=== PATIENT | male | born 1945 | race Caucasian/White ===

== ENCOUNTER 2016-08-27 03:56 | Inpatient (IN) | payer OTHER ==
[~2016-08-27] VITALS: Ht 170.2 cm; Wt 86.2 kg
[~2016-08-27 03:56] MED LIST: ATENOLOL25 M1 PO; CRESTOR5 M1 PO; DETROL LA4 M1 PO; FLOMAX0.4 M1 PO; HYDROCHLOROTHIA25 M1 PO; ROBAXIN-750750 M1 PO; TOVIAZ8 M1 PO
--- NOTE | 2016-08-27 10:55 | Admission Core Measures ---
Admission Meds I reviewed the following Meds: Current Medications Sig/Jarred Start time Last Medication Dose Stop Time Status Admin Acetaminophen 975 MG ONCE 08/27 0000 AC (Tylenol) 08/27 2358 Atenolol 25 MG DAILY 08/27 1000 AC (Tenormin) Atorvastatin Calcium 20 MG 1700 08/27 170 AC (Lipitor) Cefazolin Sodium 2,000 MG ONCE 08/27 NR (Kefzol-Ancef Inj) 08/27 2358 Hydrochlorothiazide 25 MG DAILY 08/27 1000 AC (Hydrodiuril) Methocarbamol 750 MG BID 08/27 1000 AC (Robaxin) Oxybutynin Chloride 5 MG BID 08/27 1000 AC (Ditropan) Oxycodone HCl 10 MG ONCE 08/27 AC (Roxicodone) 08/27 2358 Solifenacin 5 MG 08/27 AC (Vesicare) Tamsulosin HCl 0.4 MG 08/27 AC (Flomax) Acute Coronary Syndrome Inclusion Criteria ACS Diagnosis No Inpatient Core Measures LDL Reminder: If No, please order W/I first 24hr of stay Congestive Heart Failure Inclusion Criteria CHF Diagnosis No Cerebrovascular accident Inclusion Criteria CVA/TIA Diagnosis No Inpatient Core Measures Bedside Swallow Eval Reminder: If BSE failed, place ST order Antithrombotic Reminder: Order Antithrombotic Medication by end of day 2 Antithrombotic Reminder: Document Reason Antithrombotic Not ordered by end of day 2 AFIB/Flutter Reminder: If Present, add to problem list AFIB/Flutter Reminder: Order Anticoag Medication for pts with AFIB/Flutter Atherosclerosis Reminder: If Present, add to problem list LDL Reminder: If No, please order W/I first 24hr of stay PT Order Reminder: If No, please order Venous thromboembolism Inpatient Core Measures VTE Risk Factors: Age > 40, Surgery No [facility] VTE prophylaxis d/t No contraindications No VTE Pharm Prophylaxis d/t No contraindications Inclusion Criteria - Per Current guidelines, there needs to be overlap - treatment for the first 5 days of Warfarin therapy. - Parenteral Anticoagulation (IV or SC) needs to be - given along with Warfarin therapy. VTE Diagnosis No VTE Type NONE VTE Confirmed by (Test) NONE Problem List As ranked by this Provider includes Assessment & Plan 1. Unilateral primary osteoarthritis, right hip HOME MEDS Home Med List Atenolol 25 MG TABLET 1 TAB PO DAILY HTN (Reported) Fesoterodine Fumarate (Toviaz) 8 MG TAB.ER.24H 1 TAB PO NIGHTLY PROSTATE ( Reported) Hydrochlorothiazide 25 MG TABLET 1 TAB PO DAILY HTN (Reported) Methocarbamol (Robaxin-750) 750 MG TABLET 1 TAB PO BID PRN BACK SPASM ( Reported) Rosuvastatin Calcium (Crestor) 5 MG TABLET 1 TAB PO NIGHTLY CHOLESTEROL ( Reported) Tamsulosin HCl (Flomax) 0.4 MG CAP.ER.24H 1 CAP PO NIGHTLY PROSTATE (Reported ) Tolterodine Tartrate (Detrol LA) 4 MG CAP.ER.24H 1 CAP PO DAILY BLADDER ( Reported)
[2016-08-27] MEDS ORDERED: ASPIRIN EC325 M2 PO (10:58)
[2016-08-27] MEDS ORDERED: MIRALAX17 G1 PO (10:58)
[2016-08-27] MEDS ORDERED: MS CONTIN15 M2 PO (10:58)
[2016-08-27] MEDS ORDERED: COLACE100 M1 PO (10:58)
[2016-08-27] MEDS ORDERED: DILAUDID2 M1 PO (10:58)
--- NOTE | 2016-08-27 11:00 | Patient Discharge Instructions ---
Discharge Instructions General Discharge Information You were seen/treated for: Right hip pain related to unilateral primary osteoarthritis You had these procedures: Right total hip replacement Watch for these problems: Increasing pain despite the use of pain medication. Increasing redness, warmth or swelling. Drainage of any type from incision. Inability to bear weight on operative leg. Persistent nausea and vomiting. Fever greater than 101.5 degrees. Do not soak the wound: Yes No bath, but you may shower: Yes Other wound care: Please keep wound clean and dry. No ointments or lotions of any type on or near incision at any time. No exceptions. Your dressing will be changed by your nurse on the second day after your surgery. Daily dry dressing changes are recommended each day thereafter. Do not soak your wound in a bath at any time until otherwise indicated by Dr. Jaimes. You may shower, please dry wound immediately after shower with a clean towel. Special Instructions: Aspirin: You are taking this medication to help prevent the development of blood clots. Please take with food to protect your stomach lining. Please take as directed. Constipation: Pain medication can be very constipating. Dr. Jaimes has recommended that you take Colace and miralax each day. You may discontinue this medication if you develop loose stool or diarrhea. If you wish to continue this medication, it is available over the counter. If you are unable to move your bowels after several days, if you are unable to pass gas and are developing bloating, nausea, or vomiting as a result, please contact your doctor. Diet Continue normal diet: No Recommended Diet: Regular Activity Full Activity/No Limits: No Activity Self Limited: Yes Pounds, do NOT lift more than: 10 Acute Coronary Syndrome Inclusion Criteria At DC or during hospital stay patient has or had the following: ACS DIAGNOSIS No Discharge Core Measures Meds if any: Prescribed or Continued at Discharge Meds if any: NOT Prescribed or Continued at Discharge Congestive Heart Failure Inclusion Criteria At DC or during hospital stay patient has or had the following: CHF DIAGNOSIS No Discharge Core Measures Meds if any: Prescribed or Continued at Discharge Meds if any: NOT Prescribed or Continued at Discharge Cerebrovascular accident Inclusion Criteria At DC or during hospital stay patient has or had the following: CVA/TIA Diagnosis No Discharge Core Measures Meds if any: Prescribed or Continued at Discharge Meds if any: NOT Prescribed or Continued at Discharge Venous thromboembolism Inclusion Criteria VTE Diagnosis No VTE Type NONE VTE Confirmed by (Test) NONE Discharge Core Measures - Per Current guidelines, there needs to be overlap - treatment for the first 5 days of Warfarin therapy. - If discharged on Warfarin prior to 5 days of - overlap therapy, the patient will need to be - assessed for post discharge needs including - *Post discharge parental anticoagulation - *Warfarin and/or parental anticoagulation education - *Follow up date to check INR post discharge At least 5 days overlap therapy as Inpatient No Meds if any: Prescribed or Continued at Discharge Note: Overlap Therapy is Warfarin and Anticoagulant Meds if any: NOT Prescribed or Continued at Discharge
--- NOTE | 2016-08-27 11:02 | Surgical Discharge Summary ---
Visit Information Visit Dates Admission Date: 08/27/16 Discharge Date: 08/28/16 History of Present Illness Chief Complaint: Right hip pain secondary to unilateral primary osteoarthritis Surgical History Pertinent Surgical History: non-contributory Review of Systems: See H&P Hospital Course Course Attending Physician: BLANCA VALLEJO MD Primary Care Physician: UNKNOWN Hospital Course: Patient was admitted to the hospital for an elective total joint replacement. The procedure was tolerated well and the patient was transferred to a general surgical floor. Diet was advanced and tolerated and the patient voided spontaneously. The patient was evaluated and treated by physical therapy. At the time of hospital [facility] were stable and within normal limits, neurovascular status was intact, and pain was controlled with the use of oral pain medications. Allergies: Coded Allergies: No Known Allergies (08/23/16) Disposition Summary Disposition Principal Diagnosis: Right hip unilateral primary osteoarthritis Additional Diagnosis: none Discharge Disposition: home health services Discharge Instructions General Discharge Information Code Status: Full Code Patient's Diet: Regular, advance as tolerated Patient's Activity: WBAT Follow-Up Instructions/Appts: Follow up with Dr. Vallejo in 6 weeks from date of surgery. Please call his office to arrange and/or confirm this appointment. Medications at Discharge Discharge Medications: Continue taking these medications: Fesoterodine Fumarate (Toviaz) 8 MG TAB.ER.24H 1 Tablet ORAL NIGHTLY Tamsulosin HCl (Flomax) 0.4 MG CAP.ER.24H 1 Capsule ORAL NIGHTLY Atenolol (Atenolol) 25 MG TABLET 1 Tablet ORAL DAILY Hydrochlorothiazide (Hydrochlorothiazide) 25 MG TABLET 1 Tablet ORAL DAILY Tolterodine Tartrate (Detrol LA) 4 MG CAP.ER.24H 1 Capsule ORAL DAILY Instructions: DETROL Rosuvastatin Calcium (Crestor) 5 MG TABLET 1 Tablet ORAL NIGHTLY Methocarbamol (Robaxin-750) 750 MG TABLET 1 Tablet ORAL TWICE DAILY as needed for BACK SPASM Start taking the following new medications: Aspirin (Ecotrin*) 325 MG TABLET.DR 1 Tablet ORAL TWICE DAILY Qty = 60 No Refills Docusate Sodium (Colace) 100 MG CAPSULE 1 Capsule ORAL TWICE DAILY Qty = 14 No Refills Instructions: DISCONTINUE USE IF YOU DEVELOP LOOSE STOOL OR DIARRHEA Polyethylene Glycol 3350 (Miralax) 17 GRAM POWD.PACK 1 Packet ORAL DAILY Qty = 7 No Refills Instructions: dissolve in water, DISCONTINUE USE IF YOU DEVELOP LOOSE STOOL OR DIARRHEA Hydromorphone HCl (Dilaudid) 2 MG TABLET 1-2 Tablet ORAL EVERY 4-6 HOURS as needed for PAIN Qty = 36 No Refills Morphine Sulfate (Ms Contin) 15 MG TABLET.ER 1 Tablet ORAL TWICE DAILY Qty = 6 No Refills
--- NOTE | 2016-08-27 12:45 | RADIOLOGY REPORT ---
EXAMINATION: XR HIP, RIGHT CLINICAL INFORMATION: Status post right hip arthroplasty COMPARISON: None TECHNIQUE: Two views of the right hip. FINDINGS: Status post right hip arthroplasty. Prosthesis is well seated. Intact hardware. No evidence of periprosthetic abnormality. Small amount of air within the soft tissues and joint space compatible with recent postoperative change. IMPRESSION: Recent postoperative changes. No acute osseous abnormality.
--- NOTE | 2016-08-27 14:26 | Operative Report ---
Operative/Inv Procedure Report Surgery Date: 08/27/16 Name of Procedure: Right total hip replacement Pre-Operative Diagnosis: Primary right hip DJD Post-Operative Diagnosis: Same Estimated Blood Loss: 250 Surgeon/Investigative Agent: GENEVIEVE TYSON,BLANCA Mohan Anesthesia: block Operative/Procedure Note Note: Description of Procedure: The patient was taken to the operating room and positively identified. After induction of spinal anesthesia and administration of appropriate pre-operative antibiotics, the patient was positioned supine on the operating room table and all bony prominences were well padded. After performing a surgical timeout, the right lower extremity was prepped and draped in the usual sterile fashion. A direct anterior approach was made to the right hip. The incision was carried sharply through superficial soft tissues to the level of the fascia. Meticulous hemostasis was maintained with Bovie electocautery. The fascia over the tensor fascia krista muscle was opened sharply and the interval between the TFL and the sartorius was entered bluntly taking care to stay lateral to the lateral femoral cutaneous nerve. Retractors were placed around the femoral neck and the pericapsular fat was identified. The ascending branches of the lateral femoral circumflex vessels were identified and carefully coagulated. The pericapsular fat and anterior capsule were then resected. A napkin ring osteotomy was performed and the femoral head was removed without difficulty. Attention was then turned to the acetabulum. After appropriate placement of retractors, the acetabulum was exposed. Soft tissue was cleaned from the acetabular margin and notch. Overhanging osteophytes were removed and the teardrop was exposed. The acetabulum was then sequentially reamed to accept a 60 mm Desiree Tritanium hemispherical solid back shell. This was impacted into place in the appropriate position and fitted with a 36 mm Trident X3 zero degree polyethylene insert. Attention was then turned to the femur. After performing the appropriate ligament releases, the proximal femur was exposed. It was then sequentially broached to accept a size 5 [place] accolade 2 stem. This was trialed for leg length and stability. The trial component was removed and the final component was impacted into place. The trunnion was carefully cleaned and fit with a 36 mm, -5 Biolox delta ceramic femoral head. The hip was reduced and put through a full range of motion and found to be stable. The articular space was then irrigated with sterile saline. The periarticular soft tissues were infilitrated with Marcaine. The fascial layer was closed with interrupted #1 vicryl suture and the skin was re-approximated with interrupted 2 -0 vicryl. The skin was closed with a running 3-0 V-Lock suture. Steri-strips and a sterile dressing were applied. The patient was awakened and taken to the recovery room in satisfactory condition.
--- NOTE | 2016-08-27 15:47 | PN- Student ---
Subjective Subjective: POC: improved from pre-op. Right upper extremity pain present prior to operation has resolved post-operatively. Has used dilaudid DRAMATIC ARTS HISTORIAN once in PACU and states it helped with the pain, but doesn't want to use it too frequently. Stood from stretcher. Denies dizziness/SOB/headache/chest pain/nausea/vomiting. Voided minimal amount since avila removal at 1pm. Has not passed gas or had a bowel movement yet. Is tolerating sips of water and ice chips, has not had solid food. Objective Objective: Vitals: Temp: 97.5 HR: 76 SpO2: 97 on RA BP: 148/76 I's & O's - recent arrival on floor, not recorded 25 cc voided (intraoperative avila removed at 1pm in PACU) Glucose 150 General: awake, alert, oriented x3, NAD Neck: midline, posterior chiki-incisional tenderness, worse at base of skull. Dressings are intact minimal serosanguanous staining but not saturated LUIS drain in place with about 30cc sanguanous fluid - 65cc drained in PACU, 20cc drained on floor Lungs: CTAB, no wheeze/rales/rhonchi Heart: S1 S2 RRR, no M,R,G Abdomen: normoactive bowel sounds, soft, nontender Extremities: Upper - warm, radial pulses 2+ and equal bilaterally, nontender, decreased sensation in ulnar distribution of right hand and wrist, gross motor function in tact bilaterally, slightly weaker on right side. Lower - ALPS in place, warm, no erythema/edema, no calf tenderness bilaterally Assessment/Plan Assessment: This is a 65 y/o male s/p posterior cervical laminectomy of levels C6-T3 with fusion, PMH of htn, DM2 and glaucoma with post-op discomfort controlled with DRAMATIC ARTS HISTORIAN , with resolved right upper extremity pain and improving right upper extremity neurological function post-operatively. Plan: Pain: continue dilaudid DRAMATIC [employer]S HISTORIAN Diet: diabetic diet DVT ppx: ALPS. Per MD, heparin subq BID to start tomorrow pending low LUIS output and stable CBC Abx: ancef for perioperative infection prophylaxis x 23 hours Insulin coverage - check fingersticks PT:
[2016-08-27 16:09] VITALS: BP 110/70
--- NOTE | 2016-08-27 16:30 | PN- Orthopedic ---
Subjective Subjective: The patient was seen this afternoon postoperatively. He reports that his pain is under adequate control and no other complaints at the current time. Objective Vital Signs and I&Os Vital Signs Date Time Temp Pulse Resp B/P B/P Pulse O2 O2 Flow FiO2 Mean Ox Delivery Rate 08/27 1609 98.2 66 18 110/70 96 Room Air Physical Exam: Gen.: Alert and in no obvious distress Skin: Warm and dry Cardiac: S1-S2 regular Pulmonary: Bilateral breath sounds were equal with good exchange Extremities: Bilateral lower extremities are warm without calf tenderness or significant edema. Gross motor and sensory were intact. Right hip surgical dressing is clean, dry, and intact. Assessment/Plan Assessment/Plan Assessments: 71-year-old male status post right total hip arthroplasty. Postoperative patient is progressing as expected and his pain is under adequate control. Plan: Out of bed with physical therapy patient is weightbearing as tolerated Advance diet as tolerated Resume home medications 2 doses of postoperative prophylactic antibiotics Continue current pain regiment GI and DVT prophylaxis with the first dose of aspirin tonight Incentive spirometry Follow-up morning laboratory studies Monitor for postoperative void Core Measures/Miscellaneous Venous Thromboembolism VTE Risk Factors: Age > 40, Surgery VTE Contraindications: No Contraindications VTE Diagnosis: No VTE Type: NONE VTE Confirmed by (Test): NONE Beta Clint Is Beta Clint a Home Med? Yes If Yes, Was This Ordered Today? Yes Antibiotics Is Patient on Antibiotics? Yes If Yes: prophylaxis
[2016-08-27 18:49] VITALS: BP 120/78
[2016-08-27 20:21] VITALS: BP 118/82
[2016-08-27 22:00] VITALS: BP 116/70
[2016-08-28 06:30] VITALS: BP 102/70
[2016-08-28 08:21] LABS: ABSOLUTE BASOPHIL COUNT 0 /CUMM (0.0-0.2); ABSOLUTE EOSINOPHIL COUNT 0 /CUMM (0.0-0.7); ABSOLUTE GRANULOCYTE CT 9.5 /CUMM (1.4-6.5); ABSOLUTE LYMPH COUNT 1.1 /CUMM (1.2-3.4); ABSOLUTE MONOCYTE COUNT 1.5 /CUMM (0.10-0.60); BASOPHIL % 0.1 % (0.0-2.0); EOSINOPHIL % 0 % (0-5); GRANULOCYTE % 78.3 % (42.2-75.2); MEAN CORPUSCULAR HGB 33.8 PG (27.0-31.0); MEAN CORPUSCULAR VOLUME 99.2 FL (80.0-94.0); MEAN PLATELET VOLUME 8.5 FL (7.4-10.4); PLATELET COUNT 277 /CUMM (130-400); RBC DISTRIBUTION WIDTH 12.8 % (11.5-14.5); RED BLOOD CELL CT 3.83 /CUMM (4.70-6.10); WHITE BLOOD CELL COUNT 12.1 /CUMM (4.8-10.8)
--- NOTE | 2016-08-28 08:55 | PN- Orthopedic ---
Subjective Subjective: The patient was seen this morning postoperatively day #1. He reports that his pain is under adequate control has no other complaints at the current time. Objective Vital Signs and I&Os Vital Signs Date Time Temp Pulse Resp B/P B/P Pulse O2 O2 Flow FiO2 Mean Ox Delivery Rate 08/28 0630 99.0 63 18 102/70 98 Room Air 08/27 2200 98.5 74 20 116/70 96 Room Air 08/27 2041 74 116/70 08/27 202 97.6 75 18 118/82 95 Room Air 08/27 1913 Room Air Room Air 08/27 1849 98.2 78 20 120/78 96 Room Air 08/27 1609 98.2 66 18 110/70 96 Room Air Intake & Output 08/28 1600 08/28 0800 08/28 0000 08/27 1600 08/27 0800 08/27 0000 Intake Total 860 1200 Output Total 650 1350 Balance 210 -150 Intake, IV 620 600 Intake, Oral 240 600 Number 0 Bowel Movements Output, Urine 650 1350 Patient 190 lb Weight Weight Reported by Patient Measurement Method Physical Exam: Gen.: Alert and in no obvious distress Skin: Warm and dry Extremities: Bilateral lower extremities are warm without calf tenderness or significant edema. Gross motor and sensory are intact. Right hip surgical dressing is clean, dry, and intact. Assessment/Plan Assessment/Plan Assessment: 71-year-old male status post right total hip arthroplasty postoperative day #. The patient is progressing as expected and his pain is under adequate control. Plan: Hep-Lock IV fluids Out of bed with physical therapy GI and DVT prophylaxis Follow-up morning laboratory studies Incentive spirometry Continue current pain regiment GI and DVT prophylaxis Discharge home later today if cleared by physical therapy Core Measures/Miscellaneous Venous Thromboembolism VTE Risk Factors: Age > 40, Surgery VTE Contraindications: No Contraindications VTE Diagnosis: No VTE Type: NONE VTE Confirmed by (Test): NONE Beta Clint Is Beta Clint a Home Med? Yes If Yes, Was This Ordered Today? Yes Antibiotics Is Patient on Antibiotics? No
--- NOTE | 2016-08-28 10:38 | NUR ---
NURSING NOTE: PATIENT LEFT [facility] VIA WHEELCHAIR WITH DISTRIBUTION FOR PHARMACY AND DISCHARGE. PATIENT LEFT WITH ALL BELONGINGS INCLUDING HIP KIT, JIMMY STOCKINGS, DURACOLD ICE PACKS, EXTRA WOUND CARE DRESSINGS AND WALKER. PATIENT ALSO LEFT WITH ALL DISCHARGE PAPERWORK WHICH WAS EXPLAINED TO HIM AND TO SPOUSE. PATIENT A/OX3, DENIES PAIN AT THIS TIME.
== END 2016-08-28 10:35 | disposition home health service (06) | DRG 470 ==
LOC: SDA 03:56 → ENRESERV 12:08 → ENTRNSPT 15:35 → 2NB 15:47 → CMPTRNSPT 16:02 → ENPENDDIS 08-28 08:57 → 2NB 08-28 10:35
PROVIDERS: Nurse Practitioner; ADMIT Orthopaedic Surgery
PROC: 0SR90JA Replacement of Right Hip Joint with Synthetic Substitute, Uncemented, Open Approach (ICD-10-PCS; principal; 2016-08-27)
DX: M16.11 Unilateral primary osteoarthritis, right hip (principal); I10 Essential (primary) hypertension; M25.751 Osteophyte, right hip; F17.210 Nicotine dependence, cigarettes, uncomplicated; E78.5 Hyperlipidemia, unspecified; N40.0 Benign prostatic hyperplasia without lower urinary tract symptoms; M51.36 Other intervertebral disc degeneration, lumbar region; G89.29 Other chronic pain; R73.01 Impaired fasting glucose; K21.9 Gastro-esophageal reflux disease without esophagitis; H91.90 Unspecified hearing loss, unspecified ear
CPT/HCPCS: 36415; 73502-RT; 82436; 97110-GO; 97116-GO; 97161-GP; J0690; J0735; J2550; J7042